=== PATIENT | male | born 1945 | race Caucasian/White ===

== ENCOUNTER → 2016-08-22 | Outpatient (CLI) | payer MEDICARE, OTHER | END | disposition home or self-care (01) | LOC: GMAM 16:29 | PROVIDERS: ATTEND Family Medicine | DX: R53.83 Other fatigue (principal); E55.9 Vitamin D deficiency, unspecified ==

== ENCOUNTER → 2016-11-13 | Outpatient (CLI) | payer MEDICARE, OTHER | END | disposition home or self-care (01) | LOC: GMAM 10:25 | PROVIDERS: ATTEND Family Medicine | DX: E55.9 Vitamin D deficiency, unspecified (principal) ==

== ENCOUNTER → 2017-03-14 | Outpatient (CLI) | payer MEDICARE, OTHER | END | disposition home or self-care (01) | LOC: GMAM 11:30 | PROVIDERS: ATTEND Family Medicine | DX: E55.9 Vitamin D deficiency, unspecified (principal) ==

== ENCOUNTER → 2017-06-25 | Outpatient (CLI) | payer MEDICARE, OTHER | LOC: GMAH 11:02 | PROVIDERS: ATTEND Family Medicine | DX: Z12.5 Encounter for screening for malignant neoplasm of prostate (principal) ==

== ENCOUNTER → 2018-04-20 | Outpatient (CLI) | payer MEDICARE, OTHER | LOC: GMAM 10:37 | PROVIDERS: ATTEND Family Medicine | DX: E55.9 Vitamin D deficiency, unspecified (principal) ==

== ENCOUNTER → 2018-12-08 | Outpatient (CLI) | payer MEDICARE, OTHER | LOC: GMAM 10:50 | PROVIDERS: ATTEND Family Medicine | DX: Z12.5 Encounter for screening for malignant neoplasm of prostate (principal); E11.9 Type 2 diabetes mellitus without complications; I10 Essential (primary) hypertension ==

== ENCOUNTER 2019-08-25 08:46 | Emergency (ER) | payer MEDICARE, OTHER ==
[2019-08-25] MEDS ORDERED: MORPHINE SULFATE INJ 10 MG/ML VIAL IV ONE (08:59)
[2019-08-25] MEDS ORDERED: ASPIRIN (CHEWABLE) 81 MG TAB PO ONE (08:59)
[2019-08-25] MEDS ORDERED: SODIUM CHLORIDE 0.9% (FLUSH) 10 ML SYG IV PRN (08:59)
[2019-08-25] MEDS ORDERED: ONDANSETRON INJ 4 MG/2 ML VIAL IV ONE (08:59)
--- NOTE | 2019-08-25 09:03 | ED.PDOC ---
History of Present Illness - General Chief Complaint: Cardiovascular Problem Stated Complaint: Chest Pain Time Seen by Provider: 08/25/19 08:55 Source: patient, RN notes reviewed, Vital Signs reviewed - History of Present Illness Initial Comments: The patient is a 74 year old male with PMH significant for HTN, DM who presents with chest pain. He was referred to the ED by his primary care provider. He s tates that he thinks that he may have pulled a muscle. He reports lifting something heavy a few days ago, later he developed upper back and chest pain. The chest pain is intermittent, it is not associated with food, position or exertion. He notes that he has some associated shortness of breath and vomiting when he has the pain. No fever or cough, no shortness of breath. No other complaints at this time. Allergies/Adverse Reactions: Allergies NO KNOWN ALLERGY Allergy (Verified 05/17/14 00:21) Home Medications: Ambulatory Orders Losartan Potassium 50 mg PO DAILY 08/25/19 Metformin HCl [Glumetza] 1,000 mg PO BID 08/25/19 Methocarbamol [Robaxin] 750 mg PO Q6HRS PRN #20 tab 08/25/19 Ondansetron HCl [Zofran] 4 mg PO Q6HR PRN #12 tab 08/25/19 Review of Systems - Review of Systems Constitutional: States: no symptoms reported EENTM: States: no symptoms reported Respiratory: States: short of breath. Denies: cough Cardiology: States: chest pain. Denies: palpitations Gastrointestinal/Abdominal: States: nausea, vomiting Genitourinary: States: no symptoms reported Musculoskeletal: States: back pain - upper back pain, improving Skin: States: no symptoms reported Neurological: States: no symptoms reported Endocrine: States: no symptoms reported Hematologic/Lymphatic: States: no symptoms reported All other Systems: Reviewed and Negative Past Medical History (General) - Patient Medical History Hx Cardiac Disorders: Yes Hx Hypertension: Yes Hx Diabetes: Yes - Vaccination History Hx Influenza Vaccination: No Hx Pneumococcal Vaccination: No - Social History Hx Tobacco Use: No Hx Alcohol Use: Yes Hx Substance Use: No Hx Substance Use Treatment: No Hx Depression: No - Female History Patient : No Family Medical History - Family History Mother Family History: Unknown Physical Exam - Physical Exam General Appearance: Comfortable, No apparent distress Eyes, Ears, Nose, Throat Exam: normal ENT inspection Neck: non-tender, full range of motion Respiratory: chest non-tender, lungs clear, normal breath sounds, no respiratory distress, no accessory muscle use Cardiovascular/Chest: normal peripheral pulses, regular rate, rhythm, no edema, no gallop, no JVD, no murmur Gastrointestinal/Abdominal: non tender, soft Rectal Exam: deferred Extremity: normal range of motion, non-tender, normal inspection 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 EKG shows inferior TWI, initial troponin is negative. Recommended admission to the patient and his family for further cardiac workup which they have refused. Discussed HEART score 4 with risk of MACE 12-16%. Discussed all risks including missed OH, permanent disability, and other unforseen consequences. They understand these risks and do not want to be admitted to the hospital at this time. He is agreeable to a repeat troponin and if negative he will be discharged and continue outpatient workup with Dr. Henson. 08/25/19 11:23 Repeat troponin negative, pain free. Remainder of workup as below. Patient still does not want formal cardiac workup despite risks. Will continue outpatient symptomatic management and he will follow up with his PCP. Return indications reviewed. - Results/Orders Results/Orders: 08/25/19 08:59 IV Care:Saline Lock per Protoc QSHIFT Telemetry ONCE Sodium Chloride 0.9% (Flush) [Saline Flush Syringe] 3 ml IV PRN PRN 08/25/19 09:00 Pulse Ox Daily 08/25/19 10:08 EKG .ONCE Laboratory Results - last 24 hr 08/25/19 08/25/19 08/25/19 09:11 11:00 11:00 WBC 6.5 RBC 4.10 L Hgb 13.4 L Hct 39.1 L MCV 95.3 H MCH 32.6 H MCHC 34.2 RDW 12.9 Plt Count 124 L MPV 8.5 Absolute Neuts (auto) 4.90 Absolute Lymphs (auto) 0.70 L Absolute Monos (auto) 0.90 H Absolute Eos (auto) 0.10 Absolute Basos (auto) 0.00 Neutrophils % 74.4 Lymphocytes % 10.2 L Monocytes % 14.0 H Eosinophils % 0.8 L Basophils % 0.6 PT 9.9 INR 1.00 PTT (SP) 24.6 Sodium 135 Potassium 3.1 L Chloride 97 L Carbon Dioxide 26 Anion Gap 15.1 BUN 12 Creatinine 0.60 BUN/Creatinine Ratio 20.0 Random Glucose 233 H Serum Osmolality 277.3 Calcium 8.6 Magnesium 1.8 Creatine Kinase 39 CK-MB (CK-2) 1.3 CK-MB (CK-2) % Not Reportable Troponin I 0.05 0.05 Urine Color [place] Urine Appearance Clear Urine pH 6.0 Ur Specific [place] 1.020 Urine Protein 30 Urine Glucose (UA) 500 H Urine Ketones >=160 Urine Blood Negative Urine Nitrite Negative Urine Bilirubin Large Urine Urobilinogen 1.0 Ur Leukocyte Esterase Negative Urine RBC 0-1 Urine WBC 0-1 Ur Epithelial Cells 1-3 Amorphous Sediment 2+ Urine Bacteria 2+ H - EKG/XRAY/CT Comments: 0850 NSR @ 77, nl axis, nl interval, TWI inferiorly, no STEMI Xray Comments: no acute process Departure - Departure Clinical Impression: Chest pain Time of Disposition: 11:24 Disposition: Discharge to Home or Self Care Condition: Fair Departure Forms: ED Discharge - Pt. Copy, Patient Portal Self Enrollment Instructions: DI for Chest Pain Diet: resume usual diet Activity: increase activity as tolerated Referrals: Manuel Henson MD [Primary Care Provider] - 1-2 Weeks Prescriptions: Methocarbamol [Robaxin] 750 mg PO Q6HRS PRN #20 tab PRN Reason: Pain Ondansetron HCl [Zofran] 4 mg PO Q6HR PRN #12 tab PRN Reason: Nausea Home Medications: Ambulatory Orders Losartan Potassium 50 mg PO DAILY 08/25/19 Metformin HCl [Glumetza] 1,000 mg PO BID 08/25/19 Methocarbamol [Robaxin] 750 mg PO Q6HRS PRN #20 tab 08/25/19 Ondansetron HCl [Zofran] 4 mg PO Q6HR PRN #12 tab 08/25/19
--- NOTE | 2019-08-25 09:51 | RAD ---
EXAM DESCRIPTION: Chest,1 View CLINICAL HISTORY: 74 years Male, chest pain COMPARISON: 05/17/2014 TECHNIQUE: Single view radiograph of the chest. IMPRESSION: Normal size cardiac silhouette. Partially calcified aorta. Elevation versus eventration of the right hemidiaphragm. Scattered basilar atelectasis without lobar consolidation observed. No pleural effusion or pneumothorax. Thoracic spondylosis. Electronically signed by: Samy Green MD 08/25/2019 9:49 AM CDT
[2019-08-25 11:37] VITALS: BP 149/87; TEMP 97.9; O2SAT 97
== END 2019-08-25 11:36 | disposition home or self-care (01) ==
LOC: ER 08:46
DX: R07.9 Chest pain, unspecified (principal); I10 Essential (primary) hypertension; E11.9 Type 2 diabetes mellitus without complications
CPT/HCPCS: 36415; 71045; 80048; 81001; 82550; 82553; 84484; 85025; 85610; 85730; 93005; J2270; J2405

== ENCOUNTER 2019-08-27 12:29 | Emergency (ER) | payer MEDICARE, OTHER ==
[2019-08-27] MEDS ORDERED: ALUM & MAG HYDROX-SIMETHICONE 30 ML, LIDOCAINE VISCOUS 2% 15 ML PO ONE ×2 (12:46)
[2019-08-27] MEDS ORDERED: MORPHINE SULFATE INJ 10 MG/ML VIAL IV ONE ×4 (13:34→18:15)
[2019-08-27] MEDS ORDERED: ACETYLCYSTEIN 20 % 6,000 MG/30 ML VIAL PO ONE (13:36)
--- NOTE | 2019-08-27 13:49 | RAD ---
EXAM DESCRIPTION: Abdomen Series CLINICAL HISTORY: 74 years Male, epigastric and substernal cp COMPARISON: Radiographs the chest dated 05/05/2019. TECHNIQUE: Acute abdominal series was performed FINDINGS: Chest: Trachea is midline. Cardiac silhouette is normal in size. Mild left basilar atelectasis. ABDOMEN: Few nonspecific prominent small bowel loops are noted throughout the abdomen. Mild constipation. IMPRESSION: Few nonspecific prominent small bowel loops are noted throughout the abdomen. Mild constipation. Electronically signed by: Latoya Bolanos MD 08/27/2019 1:47 PM CDT
--- NOTE | 2019-08-27 14:37 | CT ---
EXAM DESCRIPTION: Abdomen/Pelvis w/Contrast CLINICAL HISTORY: ddimer, chest and upper abd pain, incr bili COMPARISON: None TECHNIQUE: Postcontrast multidetector CT imaging of the abdomen and pelvis was performed. Multiplanar reconstructions were generated. This exam was performed according to our departmental dose-optimization program which includes automated exposure control, adjustment of the mA and/or kV according to patient size and/or use of iterative reconstruction technique. FINDINGS: See separate report from same day for chest findings. No aggressive liver lesions or intrahepatic ductal dilatation. No abnormal gallbladder enhancement or pericholecystic fluid. No calcified gallstones. No pancreatic mass or inflammation is demonstrated. The spleen is normal in size. Usual calcified granulomas seen within the spleen that are benign. The adrenal glands are normal in appearance. 7 mm stone is positioned within the inferior pole of the left kidney. No obstructive uropathy. Benign cyst are present. No aggressive renal lesions. Symmetric renal cortical enhancement. No abnormal bladder mucosal enhancement. Prostamegaly. Several diverticula distal colon. No acute diverticulitis. Normal appendix. Gallbladder calcific atherosclerotic disease abdominal aorta and branch vessels. No aneurysm or vessel cut off. No aggressive lytic or blastic osseous lesions are present. A benign bone island is noted within the right acetabulum. There are multilevel degenerative changes about the lumbar spine including severe osteoarthritis of the facet joints on the left side at L4-5 and L5-S1 and on the right sided L4-5. Degenerative disc disease is present. IMPRESSION: No specific CT findings for abdominal pain or elevated bilirubin. Nonobstructive central left-sided nephrolithiasis 7 mm. Diverticulosis. No acute diverticulitis. Prostamegaly. Degenerative spondylosis of the lumbar spine. See separate report from the same day for CT chest findings. Electronically signed by: Terrance Melendrez MD 08/27/2019 2:35 PM CDT
--- NOTE | 2019-08-27 14:41 | CT ---
EXAM DESCRIPTION: CTA Chest CLINICAL HISTORY: ddimer, chest and upper abd pain, incr bili COMPARISON: None. TECHNIQUE: Postcontrast multidetector CT imaging of the chest was performed using a pulmonary embolism protocol. Multiplanar reconstructions were generated. Maximum intensity projection images. No surface rendered 3-D images. This exam was performed according to our departmental dose-optimization program which includes automated exposure control, adjustment of the mA and/or kV according to patient size and/or use of iterative reconstruction technique. FINDINGS: Diagnostic quality: Adequate Pulmonary embolism: None. Right heart strain: None. Pulmonary arteries: Normal in caliber. Lung parenchyma: No acute airspace disease. Usual senescent and dependent changes. Pleural effusion: None. Central airways: Normal. Adenopathy: None. Heart and great vessels: Heart size is normal. Dense coronary vascular calcifications are present. Bones: Normal. IMPRESSION: Negative for pulmonary embolism. No acute CT chest findings. Coronary vascular disease. Not mentioned above is diffuse mild patulous distention of the esophagus. Correlate for symptoms of dysphasia. Nonemergent esophagram and/or endoscopy may be beneficial. See separate report from same day for CT abdomen and pelvis findings. Electronically signed by: Terrance Melendrez MD 08/27/2019 2:40 PM CDT
[2019-08-27] MEDS ORDERED: PANTOPRAZOLE SODIUM IV 40 MG VIAL IV ONE (15:08)
[2019-08-27] MEDS ORDERED: SUCRALFATE 1 GM/10 ML 1 GM UD PO ONE ×2 (15:08→17:10)
[2019-08-27] MEDS ORDERED: SODIUM CHLORIDE 0.9% 1000ML 500 ML IVS ONE (16:11)
--- NOTE | 2019-08-27 16:45 | US ---
EXAM DESCRIPTION: Abdomen,Limited: ULTRASOUND. CLINICAL HISTORY: ruq, elevated LFT and bilirubin, pain COMPARISON: CT scan abdomen and CTA chest on the same visit. TECHNIQUE: Transabdominal scanning: blanc-scale mode. Doppler mode. FINDINGS: Gallbladder: Normal size with sludge, no stones. No fluid around the gallbladder. Wall thickening 3.8 mm. Non-tender with transducer pressure. Common bile duct: caliber 4.8 mm within normal limits. Liver: Heterogeneously increased echogenicity; contour liver capsule smooth where seen. No fluid around the liver. Intrahepatic biliary ducts normal caliber. Doppler hepatopedal flow and normal caliber portal vein.. 10 mm. Long axis right lobe 17.1 cm. Pancreas: normal size and echogenicity. Duct not seen. Proximal abdominal aorta: 1.8 cm normal caliber.. IVC: visualized and normal caliber. Right kidney: long axis measures 12.3 cm., Volume 321.4 mm. Normal cortical Echogenicity. Normal cortical thickness. 3.6 mm echogenic stone mid kidney; no hydronephrosis. IMPRESSION: 1. Gallbladder with thickened wall and sludge. No fluid. Nontender with transducer pressure. Could represent chronic cholecystitis or gallbladder dyskinesia. Consider follow-up hepatobiliary radionuclide imaging. Normal caliber common bile duct. 2. Fatty liver with borderline enlargement. Normal pancreas on ultrasound. Normal sonography of the pancreas. 3. Right kidney is large and contains nonobstructing stone, less than 4 mm. No hydronephrosis or perirenal fluid. Normal caliber proximal abdominal aorta and IVC. Electronically signed by: Axel Moreland MD 08/27/2019 4:44 PM CDT
[2019-08-27] MEDS ORDERED: NITROGLYCERIN 0.4 MG 25 EA TAB SL ONE (16:51)
[2019-08-27] MEDS ORDERED: cefTRIAXone SODIUM 1 GM in SODIUM CHL 0.9% 50ML MIN-BAG+ 50 ML IVPB ONE (17:09)
[2019-08-27] MEDS ORDERED: KETOROLAC TROMETHAMINE INJ 30 MG/ML VIAL IV ONE (17:14)
--- NOTE | 2019-08-27 17:22 | ED.PDOC ---
History of Present Illness - General Chief Complaint: Chest Pain/PA Stated Complaint: chest pain Time Seen by Provider: 08/27/19 12:33 Source: patient Exam Limitations: no limitations - History of Present Illness Initial Comments: The patient is a 74-year-old male presented emergency room secondary to what he reports is chest pain there is actually epigastric pain with what appears to be substernal radiation. The patient reports he has had this off and on, progressively getting worse for the better part of the last 8 days. No fevers. He has had a couple of episodes of nausea and vomiting. No blood in the vomitus. No syncope or near syncope. No diarrhea. No constipation. No shortness of breath. No palpitations. He was actually seen here 2 days ago in the emergency room and had 2 sets of cardiac enzymes that were negative and received a dose of morphine after which he left AGAINST MEDICAL ADVICE. On exam the patient has a very significant epigastric discomfort. He does seem to have a little bit of right upper quadrant discomfort as well. He has had at least voluntary guarding in the epigastric area. Palpation does make the pain significantly worse. The patient does also have some very mild jaundice. Liver function tests from the primary care doctor from 2 months ago were completely normal including a total bilirubin of less than 1. No history of any hepatitis or gallbladder disease or liver disease in the past. No history of any hemolytic anemias. No recent trauma. Oral intake has been decreased over the last couple of days. He reports the pain is a 10 out of 10. Pain does respond well to the frequent dosing of morphine. 1 dose of nitroglycerin also seemed to help somewhat. Timing/Duration: 1 week Severity: severe Improving Factors: medication Worsening Factors: eating, movement Associated Symptoms: diaphoresis, loss of appetite, malaise, nausea/vomiting, weakness Allergies/Adverse Reactions: Allergies NO KNOWN ALLERGY Allergy (Verified 05/17/14 00:21) Home Medications: Ambulatory Orders Losartan Potassium 50 mg PO DAILY 08/25/19 Metformin HCl [Glumetza] 1,000 mg PO BID 08/25/19 Methocarbamol [Robaxin] 750 mg PO Q6HRS PRN #20 tab 08/25/19 Ondansetron HCl [Zofran] 4 mg PO Q6HR PRN #12 tab 08/25/19 Review of Systems - Review of Systems Constitutional: States: malaise EENTM: States: no symptoms reported Respiratory: States: no symptoms reported Cardiology: States: chest pain Gastrointestinal/Abdominal: States: abdominal pain, nausea, vomiting Musculoskeletal: States: no symptoms reported Skin: States: no symptoms reported Neurological: States: anxiety All other Systems: No Change from Baseline Past Medical History (General) - Patient Medical History Hx Stroke: No Hx of COPD: No Hx Cardiac Disorders: Yes Hx Congestive Heart Failure: No Hx Hypertension: Yes Hx Diabetes: Yes Surgical History: no surgical history - Vaccination History Hx Influenza Vaccination: No Hx Pneumococcal Vaccination: Yes - Social History Hx Tobacco Use: No Hx Alcohol Use: Yes Hx Substance Use: No Hx Substance Use Treatment: No Hx Depression: No - Female History Patient : No Family Medical History - Family History Mother Family History: Unknown Physical Exam - Physical Exam General Appearance: Alert, Anxious, Obvious distress Eye Exam: bilateral normal Ears, Nose, Throat: hearing grossly normal, normal pharynx Neck: full range of motion, supple Respiratory: lungs clear, normal breath sounds, no respiratory distress, no accessory muscle use Cardiovascular/Chest: normal peripheral pulses, regular rate, rhythm, no edema Peripheral Pulses: radial,right: 2+, radial,left: 2+ Gastrointestinal/Abdominal: other - See history of present illness. No definite palpable mass. 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, alert, normal mood/affect, oriented x 3 Skin Exam: normal color Comments: Vital Signs - 24 hr 08/27/19 08/27/19 08/27/19 12:39 13:30 14:00 Temperature 97.1 F L Pulse Rate [ 64 71 74 Left Brachial] Respiratory 20 20 22 Rate Blood Pressure 199/102 181/92 179/108 [Left Arm] O2 Sat by Pulse 99 98 94 L Oximetry 08/27/19 08/27/19 08/27/19 15:35 16:00 17:00 Temperature 98 F Pulse Rate [ 69 66 77 Left Brachial] Respiratory 20 22 22 Rate Blood Pressure 184/91 181/99 176/96 [Left Arm] O2 Sat by Pulse 98 98 94 L Oximetry Progress - Progress Progress: 08/27/19 17:29 The patient is a 74-year-old male presenting secondary to severe epigastric pain that is been intermittent and progressive and worsening over the last 8 days or so. It has been associated with several episodes of nausea and vomiting. The patient appears to have a significant gastritis that may be currently being driven by an acute on chronic cholecystitis. White blood cell count is not elevated but there are 8 bands. We did do a blood culture the patient has been started on Rocephin. Is also received several acid reducing medications as well as nausea medications and multiple dosings of morphine for the pain control which has been fairly severe. CT scan of the chest does show some dilation of the esophagus. The patient does have elevation of liver function tests and a mixed hyperbilirubinemia that was not present 2 months ago. He does have mild jaundice. The patient has received a small fluid bolus. Blood pressures are elevated when the patient is in pain but do fall down significantly when pain is better controlled. Patient is being transferred for higher level of care and consultation with general surgery and gastroenterology. Acute hepatitis panel has been sent off, but it is a send out laboratory work here. Acceptance of transfer is appreciated. hellen arteaga [phone] 08/27/19 17:45 - Results/Orders Results/Orders: CT angiogram of the chest shows diffuse distention of the esophagus. Otherwise no acute pathology. See report for details. CT scan abdomen pelvis with IV contrast is essentially negative for obvious acute pathology. Liver and gallbladder look fairly normal on the CT scan. Right upper quadrant ultrasound shows gallbladder wall thickening at 3.8 mm. Common bile duct is normal at 4.8 mm. There is sludge in the gallbladder. Most consistent likely with a chronic type cholecystitis. There is fatty liver with borderline enlargement. Laboratory Tests 08/27/19 08/27/19 08/27/19 12:50 12:50 12:50 WBC 6.1 RBC 4.07 L Hgb 13.4 L Hct 38.3 L MCV 94.2 H MCH 32.9 H MCHC 34.9 RDW 13.0 Plt Count 155 MPV 8.2 Absolute Neuts (auto) Not Reportable Absolute Lymphs (auto) Not Reportable Absolute Monos (auto) Not Reportable Absolute Eos (auto) Not Reportable Neutrophils % Not Reportable Neutrophils % (Manual) 65.0 Lymphocytes % Not Reportable Lymphocytes % (Manual) 23.0 Monocytes % Not Reportable Monocytes % (Manual) 4.0 Eosinophils % Not Reportable Basophils % Not Reportable Band Neutrophils 8.0 H Platelet Estimate Decreased Normal RBC Morphology Normal rbc morph PT 9.8 INR < 1.00 PTT (SP) 24.1 D-Dimer, Quantitative 1280 H* Sodium 134 L Potassium 3.4 L Chloride 97 L Carbon Dioxide 25 Anion Gap 15.4 BUN 10 Creatinine 0.54 L BUN/Creatinine Ratio 18.5 Random Glucose 240 H Serum Osmolality 275.1 Lactic Acid Calcium 8.9 Magnesium 1.8 Total Bilirubin 5.1 H* Direct Bilirubin Indirect Bilirubin AST 66 H ALT 213 H Alkaline Phosphatase 106 Creatine Kinase 60 CK-MB (CK-2) 2.2 CK-MB (CK-2) % Not Reportable Troponin I 0.02 B-Natriuretic Peptide 659.0 H* Serum Total Protein 7.6 Albumin 3.8 Globulin 3.8 H Albumin/Globulin Ratio 1.0 L Amylase 47 Lipase 43 08/27/19 08/27/19 15:01 15:30 WBC RBC Hgb Hct MCV MCH MCHC RDW Plt Count MPV Absolute Neuts (auto) Absolute Lymphs (auto) Absolute Monos (auto) Absolute Eos (auto) Neutrophils % Neutrophils % (Manual) Lymphocytes % Lymphocytes % (Manual) Monocytes % Monocytes % (Manual) Eosinophils % Basophils % Band Neutrophils Platelet Estimate Normal RBC Morphology PT INR PTT (SP) D-Dimer, Quantitative Sodium Potassium Chloride Carbon Dioxide Anion Gap BUN Creatinine BUN/Creatinine Ratio Random Glucose Serum Osmolality Lactic Acid 1.7 Calcium Magnesium Total Bilirubin 4.6 H* Direct Bilirubin 2.7 H Indirect Bilirubin 1.9 H AST ALT Alkaline Phosphatase Creatine Kinase 51 CK-MB (CK-2) 2.1 CK-MB (CK-2) % Not Reportable Troponin I 0.02 B-Natriuretic Peptide Serum Total Protein Albumin Globulin Albumin/Globulin Ratio Amylase Lipase EKG shows chronic T wave inversions in inferior leads. Fairly normal R wave progression. No acute ST segment or T wave changes indicative of acute ischemia. Normal sinus rhythm at 62 bpm. Normal axis. Normal QT interval. Departure - Departure Clinical Impression: Acute abdominal pain, Chronic cholecystitis, Hyperbilirubinemia Disposition: Transfer to Hospital Departure Forms: ED Discharge - Pt. Copy, Patient Portal Self Enrollment Referrals: Manuel Arteaga MD [Primary Care Provider] - 1-2 Weeks Home Medications: Ambulatory Orders Losartan Potassium 50 mg PO DAILY 08/25/19 Metformin HCl [Glumetza] 1,000 mg PO BID 08/25/19 Methocarbamol [Robaxin] 750 mg PO Q6HRS PRN #20 tab 08/25/19 Ondansetron HCl [Zofran] 4 mg PO Q6HR PRN #12 tab 08/25/19 Transfer to Outside Facility - Transfer Information Decision to Transfer Date: 08/27/19 Decision to Transfer Time: 17:46 Reason for Transfer: required specialist not available Accepting Provider:: dr hoyt Accepting Facility: [facility]
[2019-08-27 18:11] VITALS: BP 168/77; TEMP 98.6
[2019-08-27 18:32] VITALS: O2SAT 97
== END 2019-08-27 18:31 | disposition short-term general hospital (02) ==
LOC: ER 12:29
DX: K81.1 Chronic cholecystitis (principal); E80.6 Other disorders of bilirubin metabolism; R10.13 Epigastric pain; R11.2 Nausea with vomiting, unspecified; I10 Essential (primary) hypertension; E11.9 Type 2 diabetes mellitus without complications; Z79.899 Other long term (current) drug therapy; R07.9 Chest pain, unspecified
CPT/HCPCS: 36415; 71275; 74019; 74177; 76775; 80053; 80074; 82150; 82247; 82248; 82550; 82553; 83605; 83690; 83735; 83880; 84484; 85025; 85379; 85610; 85730; 87040; 93005; J0696; J1885; J2270; J7030; J7050